=== PATIENT | female | born 1940 | race Hispanic/Latino ===

== ENCOUNTER 2017-04-13 17:40 | Observation (INO) | payer MEDICARE, OTHER ==
--- NOTE | 2017-04-13 17:50 | ED PDOC ---
Arrival/HPI - General Historian: Patient, Spouse - History of Present Illness Time/Duration: Prior to Arrival Symptom Onset: Sudden Symptom Course: Resolved <Danial Chandler - Last Filed: 04/13/17 20:55> <Hi Barnett DO - Last Filed: 04/13/17 21:47> - General Chief Complaint: Syncope Time Seen by Provider: 04/13/17 17:50 - History of Present Illness Narrative History of Present Illness (Text): 76 F with no PMH presents to ED for complaint of syncopal episode. Patient was with her at dinner when she became dizzy and passed out. As per , patient did not hit her head. Patient woke up and was nauseous then was brought to the ED. Patient currently denying any pain. Admits vertigo, syncope and nausea. Deneis fever/chills, cp, sob, palpitations, abd pain, v/d, constipation, incontinence, numbness/tingling, weakness, facial droop, motor/ sensory/deficit. (Danial Chandler) Past Medical History - Provider Review Nursing Documentation Reviewed: Yes - Travel History Have you recently traveled outside [place] w/in the past 3 mons?: No - Past History Past History: No Previous - Psychiatric Hx Substance Use: No - Surgical History Hx Appendectomy: Yes - Anesthesia Hx Anesthesia: Yes Hx Anesthesia Reactions: No Hx Malignant Hyperthermia: No <Danial Chandler - Last Filed: 04/13/17 20:55> Family/Social History - Physician Review Nursing Documentation Reviewed: Yes Family/Social History: Other (carotid stenosis) Smoking Status: Never Smoked Hx Alcohol Use: No Hx Substance Use: No <Danial Chandler - Last Filed: 04/13/17 20:55> Allergies/Home Meds <Danial Chandler - Last Filed: 04/13/17 20:55> <Hi Barnett DO - Last Filed: 04/13/17 21:47> Allergies/Adverse Reactions: Allergies No Known Allergies Allergy (Verified 08/22/16 07:45) Home Medications: Home Meds Medication Instructions Recorded Confirmed No Known Home Med 04/13/17 04/13/17 Review of Systems - Review of Systems Constitutional: absent: Fatigue, Weight Change, Fevers, Night Sweats Eyes: absent: Vision Changes, Photophobia, Eye Pain ENT: absent: Hearing Changes, Tinnitus, TMJ Pain, Sore Throat Respiratory: absent: SOB, Cough, Sputum, Wheezing Cardiovascular: Syncope. absent: Chest Pain, Palpitations, Calf Pain, KAUR Gastrointestinal: Nausea. absent: Abdominal Pain, Constipation, Diarrhea, Vomiting, Hematochezia, Hematemesis Genitourinary Female: absent: Dysuria, Frequency, Hematuria Musculoskeletal: absent: Arthralgias, Back Pain, Neck Pain, Joint Swelling, Myalgias Skin: absent: Rash, Pruritis, Skin Lesions, Laceration, Abscess Neurological: Dizziness. absent: Headache Endocrine: absent: Diaphoresis, Polyuria, Polydipsia Hemo/Lymphatic: absent: Adenopathy, Easy Bleeding, Easy Bruising Psychiatric: absent: Anxiety, Depression, Suicidal Ideation <Danial Chandler - Last Filed: 04/13/17 20:55> Physical Exam Vital Signs Reviewed: Yes Temperature: Afebrile Blood Pressure: Normal Pulse: Regular Respiratory Rate: Normal Appearance: Positive for: Well-Appearing, Non-Toxic, Comfortable Pain Distress: None Mental Status: Positive for: Alert and Oriented X 3 - Systems Exam Head: Present: Atraumatic, Normocephalic Pupils: Present: PERRL Extroacular Muscles: Present: EOMI Conjunctiva: Present: Normal Ears: Present: Normal Mouth: Present: Moist Mucous Membranes Pharnyx: Present: Normal Nose (External): Present: Atraumatic Nose (Internal): Present: Normal Inspection Neck: Present: Normal Range of Motion, Trachea Midline Respiratory/Chest: Present: Clear to Auscultation, Good Air Exchange Cardiovascular: Present: Regular Rate and Rhythm, Normal S1, S2, Peripheal Pulses Present Abdomen: Present: Normal Bowel Sounds. No: Tenderness, Distention, Peritoneal Signs, Rebound, Guarding Upper Extremity: Present: Normal ROM, NORMAL PULSES, Neurovascularly Intact, Capillary Refill < 2s Lower Extremity: Present: NORMAL PULSES, Normal ROM, Neurovascularly Intact, Capillary Refill < 2 s Neurological: Present: GCS=15, CN II-XII Intact, Speech Normal Skin: Present: Warm, Dry, Normal Color Lymphatic: No: Cervical Adenopathy, Axillary Adenopathy, Inguinal Adenopathy Psychiatric: Present: Alert, Oriented x 3, Normal Insight, Normal Concentration , Normal Affect, Normal Mood <Imzoniascia,Danial - Last Filed: 04/13/17 20:55> <Hi Barnett DO - Last Filed: 04/13/17 21:47> Vital Signs Temp Pulse Resp BP Pulse Ox 04/13/17 19:10 68 16 139/78 97 04/13/17 17:41 97.8 F 72 18 142/86 98 Medical Decision Making <Danial Chandler - Last Filed: 04/13/17 20:55> <Hi Barnett DO - Last Filed: 04/13/17 21:47> ED Course and Treatment: EKG performed. CBC,CMP, BNP, Cardiac enzymes, Mag, Urinalysis, CXR, Head CT ordered. Patient made NPO. Head CT and CXR are negative. All labs were at normal baseline. Patient to be admitted to tele observation. Case disscussed with Dr. Macias and he agreed. Dr. Macias asked for Cardio and Neuro consult. (Danial Chandler) In agreement with resident note, which includes further HPI details. Patient was seen and evaluated with resident, came up with plan and treatment together. (Hi Barnett DO) - Lab Interpretations Lab Results: 04/13/17 18:00 04/13/17 18:00 Lab Results 04/13/17 18:00: Sodium 139, Potassium 3.8, Chloride 105, Carbon Dioxide 25, Anion Gap 13, BUN 21, Creatinine 0.7, Est GFR ( Amer) > 60, Est GFR (Non- Af Amer) > 60, Random Glucose 104, Calcium 8.6, Magnesium 2.0, Total Bilirubin 1.1, AST 24, ALT 28, Alkaline Phosphatase 59, Lactate Dehydrogenase 458, Total Creatine Kinase 70, Troponin I < 0.01, NT-Pro-B Natriuret Pep 40.3, Total Protein 6.8, Albumin 3.9, Globulin 2.9, Albumin/Globulin Ratio 1.3 04/13/17 18:00: WBC 6.8 D, RBC 4.45, Hgb 14.3, Hct 41.0, MCV 92.1, MCH 32.1, MCHC 34.9, RDW 12.1, Plt Count 157, MPV 10.1, Gran % 44.8 L, Lymph % (Auto) 44.8 H, [place] % (Auto) 8.2 H, Eos % (Auto) 1.8, Baso % (Auto) 0.4, Gran # 3.04, Lymph # 3.0, [place] # 0.6, Eos # 0.1, Baso # 0.03 - RAD Interpretation Radiology Orders: 04/13/17 17:54 CHEST PORTABLE [RAD] Stat 04/13/17 17:55 HEAD W/O CONTRAST [CT] Stat - PA / LOG YARD MANAGER / Resident Statement HERNAN has reviewed & agrees with the documentation as recorded. / has examined the patient and agrees with the treatment plan. <Danial Chandler - Last Filed: 04/13/17 20:55> - PA / LOG YARD MANAGER / Resident Statement HERNAN has reviewed & agrees with the documentation as recorded. / has examined the patient and agrees with the treatment plan. - Scribe Statement The provider has reviewed the documentation as recorded by the Scribe <Hi Barnett DO - Last Filed: 04/13/17 21:47> - Scribe Statement Svitlana Valente Provider Scribe Attestation: All medical record entries made by the Scribe were at my direction and personally dictated by me. I have reviewed the chart and agree that the record accurately reflects my personal performance of the history, physical exam, medical decision making, and the department course for this patient. I have also personally directed, reviewed, and agree with the discharge instructions and disposition. (Hi Barnett DO) Disposition/Present on Arrival - Present on Arrival Any Indicators Present on Arrival: No History of DVT/PE: No History of Uncontrolled Diabetes: No Urinary Catheter: No History of Decub. Ulcer: No History Surgical Site Infection Following: None - Disposition Have Diagnosis and Disposition been Completed?: Yes Disposition Time: 19:17 Patient Plan: Admission <Danial Chandler - Last Filed: 04/13/17 20:55> <Hi Barnett DO - Last Filed: 04/13/17 21:47> - Disposition Diagnosis: Syncope Disposition: HOSPITALIZED Patient Problems: Current Active Problems Problem Status Onset Syncope Acute Condition: STABLE
[2017-04-13 18:20] LABS: BASO # 0.03 K/mm3 (0.0-2.0); BASO % 0.4 % (0.0-3.0); EOS # 0.1 (0.0-0.7); EOS % 1.8 % (1.5-5.0); GRAN # 3.04 (1.4-6.5); GRAN % 44.8 % (50.0-68.0); HEMOGLOBIN 14.3 gm/dL (12.0-16.0); LYMPH % 44.8 % (22.0-35.0); MEAN CELL VOLUME 92.1 fL (80.0-105.0); MEAN CORPUSCULAR HEMOGLOBIN 32.1 pg (25.0-35.0); MEAN CORPUSCULAR HGB CONC 34.9 g/dl (31.0-37.0); MEAN PLATELET VOLUME 10.1 fl (7.0-11.0); MONO # 0.6 (0.1-0.6); MONO % 8.2 % (1.0-6.0); PLATELET COUNT 157 10^3/uL (120.0-450.0); RBC 4.45 10^6/uL (3.5-6.1); RED CELL DISTRIBUTION WIDTH 12.1 % (11.5-14.5); WHITE BLOOD COUNT 6.8 10^3/ul (4.5-11.0)
[2017-04-13 18:25] LABS: ALB/GLOB RATIO 1.3 (1.1-1.8); ALBUMIN 3.9 g/dL (3.0-4.8); ALT/SGPT 28 U/L (7-56); AST/SGOT 24 U/L (15-39); BLOOD UREA NITROGEN 21 mg/dL (7-21); CALCIUM 8.6 mg/dL (8.4-10.5); GFR AFRICAN-AMERICAN > 60; GFR NON-AFRICAN AMERICAN > 60
--- NOTE | 2017-04-13 18:28 | CT ---
PROCEDURE: CT HEAD WITHOUT CONTRAST. HISTORY: syncope COMPARISON: 08/22/2016. TECHNIQUE: Axial computed tomography images were obtained through the head/brain without intravenous contrast. Radiation dose: Total exam DLP = 677.45 MGy-cm. This CT exam was performed using one or more of the following dose reduction techniques: Automated exposure control, adjustment of the mA and/or kV according to patient size, and/or use of iterative reconstruction technique. FINDINGS: HEMORRHAGE: No intracranial hemorrhage. BRAIN: Davis-white matter differentiation is preserved. There is no mass, mass effect or abnormal extra-axial fluid collection. VENTRICLES: There is mild age-related global parenchymal volume loss and proportionate enlargement of the ventricles and cortical sulci. CALVARIUM: There is no calvarial fracture or extracranial soft tissue swelling. PARANASAL SINUSES: Predominantly clear. MASTOID AIR CELLS: Predominantly clear. OTHER FINDINGS: None. IMPRESSION: No acute intracranial abnormality. Mild age-related global parenchymal volume loss.
[2017-04-13 18:37] LABS: B-TYPE NATRIURETIC PEPTIDE 40.3 pg/mL (0-450)
[2017-04-13 18:41] LABS: TROPONIN I < 0.01 ng/mL
--- NOTE | 2017-04-13 18:46 | RAD ---
HISTORY: r/o infiltrate COMPARISON: No prior. FINDINGS: LUNGS: The lungs are well inflated and clear. PLEURA: No significant pleural effusion identified, no pneumothorax apparent. CARDIOVASCULAR: Normal. OSSEOUS STRUCTURES: No significant abnormalities. VISUALIZED UPPER ABDOMEN: Normal. OTHER FINDINGS: There is elevation of the right hemidiaphragm. IMPRESSION: No no acute findings.
--- NOTE | 2017-04-14 09:24 | CARD ---
APPROVED REPORT EKG Measurement Heart [id number] <Conclusion> Normal sinus rhythm Possible Left atrial enlargement Nonspecific ST and T wave abnormality Abnormal ECG
--- NOTE | 2017-04-14 11:26 | CP.PCM.CON ---
<Trevor Nagel - Last Filed: 04/14/17 12:09> History of Present Illness - History of Present Illness History of Present Illness: PGY-[address] Ramo Campuzano's Neurology Service: Reason for consult: syncope This is a 76 year old female with no significant PMHx who presents after a syncopal episode. Patient was with her at a restaurant. She sat down and then began to get dizzy before losing consciousness. Patient woke up and was nauseous and then brought in by ambulance. Patient's stated that EMS told her that her oxygenation was low. The also states that the patient also mostly drinks tea as opposed to water. Patient this morning denies nausea, vomiting, weakness, headaches, dizziness, CP, SOB. Of note, patient had a fall August [address] at the time revealed small right parietal scalp hematoma/ecchymosis. Suture repair of head and ear laceration performed in ED. PMHx: Denies PSHx: Meniscus surgery, hand surgery Allergies: NKDA Social: Denies tobacco, alcohol, drugs. Review of Systems - Constitutional Constitutional: absent: Headache, Weakness - EENT Eyes: absent: Change in Vision - Cardiovascular Cardiovascular: absent: Chest Pain - Respiratory Respiratory: absent: Dyspnea - Gastrointestinal Gastrointestinal: absent: Abdominal Pain, Nausea, Vomiting - Genitourinary Genitourinary: absent: Dysuria Past Patient History - Infectious Disease Hx of Infectious Diseases: None - Past Social History Smoking Status: Never Smoked - CARDIAC Hx Cardiac Disorders: No - PULMONARY Hx Respiratory Disorders: No - NEUROLOGICAL Hx Dizziness: Yes (First syncopal episode 04/23/17) - HEENT Hx HEENT Problems: No Other/Comment: Uses only reading glasses - RENAL Hx Chronic Kidney Disease: No - ENDOCRINE/METABOLIC Hx Endocrine Disorders: No - HEMATOLOGICAL/ONCOLOGICAL Hx Blood Disorders: No - INTEGUMENTARY Hx Dermatological Problems: No - MUSCULOSKELETAL/RHEUMATOLOGICAL Hx Musculoskeletal Disorders: Yes Hx Arthritis: Yes (B/L hands; no meds taken) Hx Falls: Yes - GASTROINTESTINAL Hx Gastrointestinal Disorders: No - GENITOURINARY/GYNECOLOGICAL Hx Genitourinary Disorders: No - PSYCHIATRIC Hx Psychophysiologic Disorder: No Hx Substance Use: No - SURGICAL HISTORY Hx Surgeries: Yes Other/Comment: Meniscus surgery on left knee ago over 10 yrs ago. - ANESTHESIA Hx Anesthesia: Yes Hx Anesthesia Reactions: No Hx Malignant Hyperthermia: No Meds Allergies/Adverse Reactions: Allergies Allergy/AdvReac Type Severity Reaction Status Date / Time No Known Allergies Allergy Verified 08/22/16 07:45 Physical Exam - Constitutional Appears: Non-toxic, No Acute Distress - Head Exam Head Exam: ATRAUMATIC, NORMAL INSPECTION, NORMOCEPHALIC - Eye Exam Eye Exam: EOMI, PERRL - ENT Exam ENT Exam: Mucous Membranes Moist - Respiratory Exam Respiratory Exam: Clear to Auscultation Bilateral - Cardiovascular Exam Cardiovascular Exam: REGULAR RHYTHM - GI/Abdominal Exam GI & Abdominal Exam: Normal Bowel Sounds - Neurological Exam Neurological exam: Alert, CN II-XII Intact, Oriented x3, Reflexes Normal Additional comments: Manual muscle testing 5/5 throughout No pronator drift Down-going plantar responses Results - Vital Signs Recent Vital Signs: Last Vital Signs Temp 97.8 F 04/14/17 06:00 Pulse 66 04/14/17 06:00 Resp 20 04/14/17 06:00 BP 113/69 04/14/17 06:00 Pulse Ox 98 04/14/17 06:00 - Labs Result Diagrams: 04/13/17 18:00 04/13/17 18:00 Assessment & Plan - Assessment and Plan (Free Text) Assessment: This is a 76 year old female with no significant PMHx who presents after a syncopal episode. This was an episode of hypoperfusion to the brain given that patient had low oxygenation and poor hydration. CT scan unremarkable for acute ischemic or hemorrhagic events. Plan: 1) Maintain adequate hydration. 2) Avoid hypotensive episodes. 3) Avoid sedative medications. 4) Follow up with carotid ultrasound. Patient is neurologically stable. Spoken with patient and family at bedside. Thank you for this consult. Case discussed with Dr. Justen Nagel, PGY-1 - Date & Time Date: 04/14/17 Time: 11:30 <Ramo Campuzano - Last Filed: 04/14/17 14:40> Results - Vital Signs Recent Vital Signs: Last Vital Signs Temp 97.1 F L 04/14/17 11:45 Pulse 66 04/14/17 13:33 Resp 20 04/14/17 11:45 BP 134/82 04/14/17 11:45 Pulse Ox 98 04/14/17 09:00 - Labs Result Diagrams: 04/13/17 18:00 04/13/17 18:00 Attending/Attestation - Attestation I have personally seen and examined this patient.: Yes I have fully participated in the care of the patient.: Yes I have reviewed all pertinent clinical information: Yes
[2017-04-14 11:58] VITALS: BMI 22.2
[2017-04-14 11:59] VITALS: BP 134/82; RESP 20; TEMP 97.1; O2SAT 98
[2017-04-14 13:33] VITALS: PULSE 66
--- NOTE | 2017-04-14 14:33 | US ---
PROCEDURE: Bilateral carotid artery duplex ultrasound HISTORY: Carotid stenosis PHYSICIAN(S): Will Parr MD. TECHNIQUE: Duplex sonography and color-flow Doppler were used to evaluate the carotid bifurcations and limited segments of the vertebral arteries bilaterally. FINDINGS: There is mild smooth heterogeneous plaque noted at the carotid bifurcations bilaterally. The peak systolic velocity in the proximal right internal carotid artery is 82 cm/sec. This corresponds to a 20 to 39% proximal right ICA stenosis. Normal systolic velocities are noted in the proximal right external carotid artery. There is antegrade flow in the small right vertebral artery. The peak systolic velocity in the proximal left internal carotid artery is 88 cm/sec. This corresponds to a 20 to 39% proximal left ICA stenosis. Normal systolic velocities are noted in the proximal left external carotid artery. There is antegrade flow in the left vertebral artery. IMPRESSION: 1. Bilateral 20-39% proximal ICA stenoses. 2. Antegrade flow in both vertebral arteries.
--- NOTE | 2017-04-15 03:23 | CON ---
DATE: 04/14/2017 REQUESTING PHYSICIAN: Dr. Mota. REASON FOR CONSULTATION: Syncope. HISTORY OF PRESENT ILLNESS: This is 76-year-old woman with no significant past medical history who presented after a syncopal event in a restaurant. She states that she usually does not drink adequate fluid throughout the day, but has never had any syncopal events in the past. She went out to have dinner with the and became dizzy and had loss of consciousness. No seizure activity was noted. Emergency squad was called. Upon awakening she was fully cognizant of her surroundings. She was unaware of any prodromal symptoms. Her past history is otherwise unremarkable. PAST SURGICAL HISTORY: Notable for prior appendectomy. MEDICATIONS: None. ALLERGIES: NONE. SOCIAL HISTORY: She does not smoke or drink. FAMILY HISTORY: One sister has had premature heart disease and required bypass surgery. Parents from age-related illness. A 10-point review of system is otherwise unremarkable. She is extremely active and denies any exertional symptoms. PHYSICAL EXAMINATION GENERAL: She is an elderly women who appears comfortable at the present time. VITAL SIGNS: Her blood pressure is 112/70, pulse 66, in sinus; respirations are 14 and she is afebrile. HEENT: Normocephalic and atraumatic. Pupils equal, round and reactive to light and accommodation. NECK: Supple, no JVD noted. CHEST: Clear to auscultation and percussion. HEART: PMI in normal position. No pathological murmurs noted. ABDOMEN: Soft, nontender with normoactive bowel sounds. EXTREMITIES: No clubbing, cyanosis or edema. SKIN: Warm and dry. PSYCHIATRIC: No mood and affect. NEUROLOGIC: Alert and oriented x3. No gross motor or sensory deficits. LABORATORY DATA: Electrocardiogram revealed sinus rhythm with nonspecific ST-T wave abnormalities. Chest x-ray reveals normal cardiac silhouette and clear lung keyes. White count 6.8, hemoglobin and hematocrit of 14.3 and 41.0; platelet count 157,000. Potassium 3.8, BUN and creatinine 21 and 0.7. Troponin in this negative. BNP is 40. IMPRESSION: Syncope appears most likely vasovagal in nature, possibly due to some degree of volume depletion and dehydration. No significant abnormalities are noted based upon history or physical examination. RECOMMENDATIONS: Followup cardiac enzymes will be checked. An echocardiogram has been ordered, if not performed today this can be performed as an outpatient. Her symptoms appear relatively benign and will be discharged home today with outpatient followup as advised. If she has recurrent events, a more extensive workup will be initiated. She was encouraged to maintain adequate fluid intake. Thanks for this consultation. We will be happy to see as needed. Viktor Jang MD MTDD
--- NOTE | 2017-04-16 01:25 | HP ---
HISTORY OF PRESENT ILLNESS: The patient is 76-year-old, patient of Dr. Michele. According to , who witnessed the incident, they were sitting in diner and all of a sudden she felt very weak. She blacked out and slumped down in her chair and she was minimally responsive for a few minutes. After few minutes, she woke up and felt nauseous. Ambulance was called and she was brought to the emergency room. She otherwise, denies nausea, vomiting, or diarrhea. She did not go out in the heat either. She denies any chest pain. No shortness of breath. No palpitation. She does admit that she had fall in 08/2016 and at that point, she sustained small hematoma and ecchymosis. PAST MEDICAL HISTORY: Unremarkable. SURGICAL HISTORY: Significant for arthroscopic knee surgery and some hand surgery. SOCIAL HISTORY: She is , lives with her , for more than 60 years. ALLERGIES: SHE IS NOT ALLERGIC ANY MEDICATION. MEDICATIONS: She is not on any medications at home. PHYSICAL EXAMINATION: GENERAL: The patient is awake, alert, communicative. VITAL SIGNS: She is afebrile, pulse 82, respirations 20, and blood pressure 134/82. LUNGS: Bilateral with air flow. No rhonchi or crackle. HEART: S1 and S2 audible. ABDOMEN: Soft is nontender. No rebound. No guarding. NEUROLOGIC: The patient is awake and alert, communicative, and ambulatory. She was ambulating with her and there was no cardiac event noted on the monitor. LABORATORY EXAM: WBC 6.8, hemoglobin 14, heart rate of 41, platelet 157. Chemistry; sodium of 139, potassium 3.8, chloride 105, CO2 of 25, BUN 21, creatinine 0.7, blood sugar 104. LFTs are within normal limits. Troponin is negative. Her EKG shows normal sinus rhythm, possible left atrial enlargement and nonspecific ST-T wave changes. CT scan of the head is unremarkable. Carotid Doppler was done that is also unremarkable, bilateral 20% to 39% proximal ICA stenosis. ASSESSMENT: Probably in vasovagal syncope secondary to mild dehydration. PLAN: The patient was evaluated by Cardiology and was cleared from Cardiology point of view, so was neurologist and patient is being discharge home. She will followup with Dr. Marie as an outpatient. Kathy Brandon MD [facility] # [id number]
== END 2017-04-14 14:30 | disposition home or self-care (01) ==
LOC: ED 17:40 → ERH 19:17 → 2RSO 21:03
PROVIDERS: ADMIT Internal Medicine Nephrology; ATTEND Internal Medicine Nephrology
DX: E86.0 Dehydration (principal); E86.9 Volume depletion, unspecified; R55 Syncope and collapse
CPT/HCPCS: 70450; 71010; 80053; 82550; 83615; 83735; 83880; 84484; 85025; 93005; 93880; 99285; G0378